=== PATIENT | male | born 2000 | race Caucasian/White ===

== ENCOUNTER 2023-12-07 13:15 | Emergency (ER) | payer MEDICAID ==
[~2023-12-07] VITALS: Ht 175.3 cm; Wt 113.4 kg
[2023-12-07 13:30] VITALS: BP_SYST 120; PULSE 83; RESP 17; TEMP 97; O2SAT 95
[2023-12-07] MEDS ORDERED: SULF1TAB48 PO (13:49)
[2023-12-07] MEDS ORDERED: ACET-2634 PO (13:49)
[2023-12-07] MEDS: cefTRIAXone 1 GM in LIDOCAINE 1%, 20 ML MDV 2.1 ML IM ONE (14:46)
[2023-12-07] MEDS: DIPHTH,PERTUSS(ACELL),TET VAC 0.5 ML VIAL (Tdap) I.M. ONE (14:46)
[2023-12-07 14:56] VITALS: BP_SYST 120; PULSE 83; RESP 17; TEMP 97; O2SAT 95
== END 2023-12-07 14:56 | disposition home or self-care (01) ==
LOC: SED 13:15
DX: L03.115 Cellulitis of right lower limb (principal)
CPT/HCPCS: 99284; 90715; 96372; 90471; J0696; J2001

== ENCOUNTER 2023-12-10 20:11 | Inpatient (IN) | payer MEDICAID ==
[~2023-12-10] VITALS: Ht 172.7 cm; Wt 101.6 kg
[~2023-12-10 20:11] MED LIST: ACET-2634 PO; SULF1TAB48 PO
[2023-12-10 20:39] VITALS: PULSE 71; RESP 16; TEMP 99.2; O2SAT 96
[2023-12-10 23:00] LABS: BASOPHILS # (AUTO) 0.1 K/uL (0.0-0.2); BASOPHILS % (AUTO) 0.8 % (0.0-2.0); EOSINOPHILS # (AUTO) 0.1 K/uL (0.0-0.4); EOSINOPHILS % (AUTO) 1.4 % (0.0-4.0); HEMATOCRIT 37.8 % (36-54); HEMOGLOBIN 13.2 g/dL (14.0-18.0); LYMPHOCYTES % (AUTO) 25.1 % (20.5-51.5); MEAN CORPUSCULAR HEMOGLOBIN 31 pg (27-31); MEAN CORPUSCULAR HGB CONC 35 % (32-36); MEAN CORPUSCULAR VOLUME 88 fL (79.0-98.0); MONOCYTES # (AUTO) 0.7 K/uL (0.0-1.0); MONOCYTES % (AUTO) 8.5 % (1.7-9.3); NEUTROPHILS # (AUTO) 5.2 K/uL (1.8-7.7); NEUTROPHILS % (AUTO) 64.2 % (40.0-70.0); PLATELET COUNT (AUTO) 245 K/uL (130-430); RED BLOOD CELL COUNT(AUTO) 4.32 MIL/uL (4.2-6.2); RED CELL DISTRIBUTION WIDTH 12.3 % (9.0-15.0)
[2023-12-10 23:24] LABS: CALCIUM 8.6 mg/dL (8.4-11.0); CREATININE 1.28 mg/dL (0.55-1.30); POTASSIUM 3.9 mmol/L (3.5-5.1)
[2023-12-10] MEDS ORDERED: MORPHINE 4 MG INJ. 4 MG/ML VIAL IVP PRN (23:45)
[2023-12-11] VITALS (7 sets, daily range): BP systolic 106–122; PULSE 60–74; RESP 16–18; TEMP 98–98.9; O2SAT 96–98
[2023-12-11] MEDS ORDERED: ceFAZolin SODIUM 1 GM VIAL ONE
[2023-12-11] MEDS: ceFAZolin SODIUM 2 GM in D5W 100 ML IV SCH ×2 (00:14→07:04)
[2023-12-11] MEDS: NACL 0.9% 1,000 ML IV SCH (00:14)
[2023-12-11 08:14] LABS: BASOPHILS % (AUTO) 0.5 % (0.0-2.0); EOSINOPHILS # (AUTO) 0.1 K/uL (0.0-0.4); EOSINOPHILS % (AUTO) 1.8 % (0.0-4.0); HEMOGLOBIN 13.5 g/dL (14.0-18.0); LYMPHOCYTES % (AUTO) 25.9 % (20.5-51.5); MEAN CORPUSCULAR HEMOGLOBIN 30 pg (27-31); MEAN CORPUSCULAR HGB CONC 34 % (32-36); MEAN CORPUSCULAR VOLUME 89 fL (79.0-98.0); MONOCYTES # (AUTO) 0.7 K/uL (0.0-1.0); MONOCYTES % (AUTO) 9.4 % (1.7-9.3); NEUTROPHILS # (AUTO) 4.8 K/uL (1.8-7.7); NEUTROPHILS % (AUTO) 62.4 % (40.0-70.0); PLATELET COUNT (AUTO) 254 K/uL (130-430); RED BLOOD CELL COUNT(AUTO) 4.47 MIL/uL (4.2-6.2); RED CELL DISTRIBUTION WIDTH 12.4 % (9.0-15.0); WHITE BLOOD COUNT (AUTO) 7.7 K/uL (4.8-10.8)
[2023-12-11 09:07] LABS: ALBUMIN 3.5 g/dL (3.4-4.8); CALCIUM 8.8 mg/dL (8.4-11.0); CREATININE 1.15 mg/dL (0.55-1.30); POTASSIUM 4.1 mmol/L (3.5-5.1); TOTAL BILIRUBIN 0.6 mg/dL (0.0-1.0); TOTAL PROTEIN, SERUM 7.4 g/dL (6.4-8.3)
[2023-12-11 11:56] LABS: BARBITURATE, URINE NEGATIVE (NEG <=200); BENZODIAZEPINE, URINE POSITIVE (NEG <=150); CANNABINOID, URINE POSITIVE (NEG <=50); COCAINE, URINE NEGATIVE (NEG <=150); METHAMPHETAMINES SCREEN,URINE NEGATIVE (NEG <=500); OPIATE, URINE NEGATIVE (NEG <=100); PHENCYCLIDINE SCREEN,URINE NEGATIVE (NEG <=25); UR TRICYCLIC ANTIDEPRESSANTS NEGATIVE (NEG <=300); URINE AMPHETAMINE NEGATIVE (NEG <=500); URINE METHADONE NEGATIVE (NEG <=200); URINE OXYCODONE SCREEN NEGATIVE (NEG <=100)
[2023-12-12] VITALS (7 sets, daily range): BP systolic 109–129; PULSE 62–70; RESP 16–20; TEMP 97.4–99.2; O2SAT 97–99
[2023-12-12 05:38] LABS: BASOPHILS % (AUTO) 0.4 % (0.0-2.0); EOSINOPHILS # (AUTO) 0.1 K/uL (0.0-0.4); EOSINOPHILS % (AUTO) 1.7 % (0.0-4.0); HEMATOCRIT 39.5 % (36-54); HEMOGLOBIN 13.4 g/dL (14.0-18.0); LYMPHOCYTES # (AUTO) 1.9 K/uL (1.0-5.5); LYMPHOCYTES % (AUTO) 21.7 % (20.5-51.5); MEAN CORPUSCULAR HEMOGLOBIN 30 pg (27-31); MEAN CORPUSCULAR HGB CONC 34 % (32-36); MEAN CORPUSCULAR VOLUME 89 fL (79.0-98.0); MONOCYTES # (AUTO) 0.9 K/uL (0.0-1.0); MONOCYTES % (AUTO) 9.8 % (1.7-9.3); NEUTROPHILS # (AUTO) 5.8 K/uL (1.8-7.7); NEUTROPHILS % (AUTO) 66.4 % (40.0-70.0); PLATELET COUNT (AUTO) 256 K/uL (130-430); RED BLOOD CELL COUNT(AUTO) 4.43 MIL/uL (4.2-6.2); WHITE BLOOD COUNT (AUTO) 8.7 K/uL (4.8-10.8)
[2023-12-12 06:08] LABS: ALBUMIN 3.2 g/dL (3.4-4.8); CALCIUM 8.6 mg/dL (8.4-11.0); CREATININE 1.13 mg/dL (0.55-1.30); TOTAL BILIRUBIN 0.5 mg/dL (0.0-1.0)
[2023-12-12] MEDS: MIDAZOLAM HCL 2 MG/2 ML VIAL (VERSED) ONE (16:45)
[2023-12-12] MEDS ORDERED: LR 1,000 ML IV.SOLN IV ONE (16:50)
[2023-12-12] MEDS ORDERED: METOCLOPRAMIDE HCL 10 MG/2 ML VIAL ONE (16:50)
[2023-12-12] MEDS ORDERED: ONDANSETRON HCL 4 MG/2 ML VIAL ONE (16:50)
[2023-12-12] MEDS ORDERED: SEVOFLURANE 15 MIN GAS INH ONE (16:50)
[2023-12-12] MEDS ORDERED: NS IRRIG SOLN 1000 ML IR ONE (16:50)
[2023-12-12] MEDS ORDERED: BUPIVACAINE /PF 0.5% 30 ML VIAL ONE (16:50)
[2023-12-12] MEDS ORDERED: PROPOFOL 200MG/ 20ML VIAL (DIPRIVAN) IV ONE (16:50)
[2023-12-12] MEDS ORDERED: SUCCINYLCHOLINE CHLORIDE 20 MG/ML(QUELICIN) ONE (16:50)
[2023-12-12] MEDS ORDERED: ePHEDrine sulfate 50 MG/ML VIAL IVP PRN (18:00)
[2023-12-12] MEDS ORDERED: METOCLOPRAMIDE HCL 10 MG/2 ML VIAL IVP PRN (18:00)
[2023-12-12] MEDS ORDERED: LABETALOL 100 MG/ 20ML VIAL IVP PRN (18:00)
[2023-12-12] MEDS ORDERED: ONDANSETRON HCL 4 MG/2 ML VIAL IVP PRN (18:00)
[2023-12-12] MEDS ORDERED: NALOXONE HCL 0.4 MG/ML AMP (NARCAN) IVP PRN (18:00)
[2023-12-12] MEDS ORDERED: HYDROmorphone 1 MG/ML INJ. CARTRIDGE IVP PRN ×3 (18:00)
[2023-12-12] MEDS: ACETAMINOPHEN 325 MG TABLET PO PRN (18:58)
[2023-12-12 20:37] LABS: BASOPHILS % (AUTO) 0.5 % (0.0-2.0); EOSINOPHILS # (AUTO) 0.1 K/uL (0.0-0.4); EOSINOPHILS % (AUTO) 1.1 % (0.0-4.0); HEMATOCRIT 38.5 % (36-54); HEMOGLOBIN 13.2 g/dL (14.0-18.0); INR 1.1 (0.80-1.20); LYMPHOCYTES # (AUTO) 1.7 K/uL (1.0-5.5); LYMPHOCYTES % (AUTO) 21.4 % (20.5-51.5); MEAN CORPUSCULAR HEMOGLOBIN 30 pg (27-31); MEAN CORPUSCULAR HGB CONC 34 % (32-36); MEAN CORPUSCULAR VOLUME 88 fL (79.0-98.0); MONOCYTES # (AUTO) 0.7 K/uL (0.0-1.0); MONOCYTES % (AUTO) 9.1 % (1.7-9.3); NEUTROPHILS # (AUTO) 5.3 K/uL (1.8-7.7); NEUTROPHILS % (AUTO) 67.9 % (40.0-70.0); PLATELET COUNT (AUTO) 269 K/uL (130-430); PROTHROMBIN TIME 11.6 SECS (9.5-12.5); RED BLOOD CELL COUNT(AUTO) 4.35 MIL/uL (4.2-6.2); RED CELL DISTRIBUTION WIDTH 12.2 % (9.0-15.0); WHITE BLOOD COUNT (AUTO) 7.8 K/uL (4.8-10.8)
[2023-12-12 20:41] LABS: ALBUMIN 3.2 g/dL (3.4-4.8); CALCIUM 8.6 mg/dL (8.4-11.0); CREATININE 1.03 mg/dL (0.55-1.30); POTASSIUM 3.6 mmol/L (3.5-5.1); TOTAL BILIRUBIN 0.5 mg/dL (0.0-1.0)
[2023-12-13] VITALS: BP_SYST 119; PULSE 74; RESP 17; TEMP 97.7; O2SAT 99
[2023-12-13] MEDS ORDERED: ACET-2634 PO (07:36)
[2023-12-13] MEDS ORDERED: CEPH250C PO (07:36)
[2023-12-13 08:00] VITALS: BP_SYST 131; PULSE 68; RESP 16; TEMP 98.1; O2SAT 98
[2023-12-13] MEDS: fentaNYL CITRATE/PF 100 MCG/2 ML AMP ONE (09:33)
[2023-12-13] MEDS: NEOMY SULF/BACITRAC ZN/POLY 28 GM OINT..GM. TP SCH (09:50)
[2023-12-13 09:53] VITALS: O2SAT 98
[2023-12-13 11:14] VITALS: BP_SYST 116; PULSE 61; RESP 16; TEMP 98.6; O2SAT 96
[2023-12-13] MEDS ORDERED: IBUP-1970 PO (11:21)
[2023-12-13 14:35] VITALS: BP_SYST 116; PULSE 61; RESP 16; TEMP 98.6; O2SAT 96
[2023-12-13] MEDS: HYDROcodone/ACETAMIN 5-325 MG TAB (NORCO/ VICODIN) PO PRN (15:13)
[2023-12-13 16:21] VITALS: PULSE 66; RESP 15; TEMP 98.5; O2SAT 98
== END 2023-12-13 15:00 | disposition home or self-care (01) | DRG 383 ==
LOC: SED 20:11 → SMU 23:36
PROVIDERS: ADMIT Student in an Organized Health Care Education/Training Program; ATTEND Student in an Organized Health Care Education/Training Program
PROC: 0Y9H0ZZ Drainage of Right Lower Leg, Open Approach (ICD-10-PCS; principal; 2023-12-12 17:04)
DX: L03.115 Cellulitis of right lower limb (principal); D64.9 Anemia, unspecified; L02.415 Cutaneous abscess of right lower limb; F12.10 Cannabis abuse, uncomplicated; W57.XXXA Bitten or stung by nonvenomous insect and other nonvenomous arthropods, initial encounter; Z79.1 Long term (current) use of non-steroidal anti-inflammatories (NSAID); Y93.89 Activity, other specified; Y92.89 Other specified places as the place of occurrence of the external cause; Y99.8 Other external cause status
CPT/HCPCS: 36415; 73590; 80048; 80053; 80307; 82550; 83037; 83605; 85025; 85610; 85730; 87040; 87070; 87075; 87186; 87205; 88304; 93971; 97116-GP; 99285; J0330; J0690; J2405; J2704; J2765; J3010; J3465; J3490; J7060; J7120

== ENCOUNTER 2023-12-16 09:34 | Emergency (ER) | payer MEDICAID ==
[~2023-12-16] VITALS: Ht 172.7 cm; Wt 108.9 kg
[~2023-12-16 09:34] MED LIST changes: +CEPH250C PO; +IBUP-1970 PO; -SULF1TAB48 PO
[2023-12-16 09:43] VITALS: BP_SYST 137; PULSE 71; RESP 16; TEMP 97.4; O2SAT 96
[2023-12-16 10:12] VITALS: BP_SYST 137; PULSE 71; RESP 16; TEMP 97.4; O2SAT 96
== END 2023-12-16 10:10 | disposition home or self-care (01) ==
LOC: SED 09:34
DX: L02.415 Cutaneous abscess of right lower limb (principal); Z48.00 Encounter for change or removal of nonsurgical wound dressing; Z79.899 Other long term (current) drug therapy; Z79.2 Long term (current) use of antibiotics
CPT/HCPCS: 99281